=== PATIENT | female | born 1945 | race Caucasian/White ===

== ENCOUNTER 2024-03-23 20:03 | Emergency (ER) | payer MEDICARE ==
[2024-03-23] MEDS ORDERED: Sodium Chloride 0.9% 10 ML Syringe FLUSH PRN (20:12)
[2024-03-23] MEDS: Nitroglycerin 0.4 MG Tab.SL SL ONE (20:15)
[2024-03-23] MEDS: Aspirin 81 MG Tab.Chew ONE (20:16)
[2024-03-23] MEDS: Ticagrelor 90 MG Tab PO ONE (20:18)
[2024-03-23 20:20] LABS: BASOPHILS PERCENT AUTO 0.1 % (0.2-1.2); EOSINOPHILS PERCENT AUTO 0.1 % (0.0-4.0); HEMATOCRIT 41.8 % (33.0-47.0); HEMOGLOBIN 14.1 g/dL (12.0-16.0); IMMATURE GRAN ABSOLUTE AUTO 0.02 x10^3/uL (0.00-0.07); LYMPHOCYTES ABSOLUTE AUTO 1.1 x10^3/uL (1.0-4.8); LYMPHOCYTES PERCENT AUTO 7.6 % (25.0-50.0); MEAN CORPUSCULAR HEMOGLOBIN 28.5 pg (26.0-32.0); MEAN CORPUSCULAR HGB CONC 33.7 g/dL (32.0-36.0); MEAN CORPUSCULAR VOLUME 84.4 fL (78.0-93.0); MONOCYTES ABSOLUTE AUTO 0.4 x10^3/uL (0.0-0.8); MONOCYTES PERCENT AUTO 2.5 % (2.0-11.0); NEUTROPHILS ABSOLUTE AUTO 13.2 x10^3/uL (1.8-7.7); NEUTROPHILS PERCENT AUTO 89.6 % (50.0-80.0); PLATELET COUNT,PLT 244 x10^3/uL (130-400); RED BLOOD CELL COUNT 4.95 x10^6/uL (4.00-5.50); WHITE BLOOD CELL COUNT,WBC 14.7 x10^3/uL (4.0-10.0)
[2024-03-23] MEDS: Heparin Sodium 5,000 Units/ML Vial IVPUSH ONE (20:22)
[2024-03-23] MEDS: Heparin Sodium/0.45% NaCl 25,000 UNITS/500 ML BAG IV SCH (20:23)
[2024-03-23] MEDS: Nitroglycerin/D5W 25 MG/250 ML BOTTLE IV SCH (20:23)
[2024-03-23] MEDS: Ondansetron 4 MG/2 ML SDV ONE (20:30)
[2024-03-23] MEDS: fentaNYL 50 MCG/ML SDV ONE (20:30)
[2024-03-23] MEDS: Metoprolol Tartrate 25 MG Tab ONE (20:30)
[2024-03-23] MEDS: Atropine 0.1 MG/ML 10 ML Syringe ONE (20:34)
[2024-03-23] MEDS: EPINEPHrine 1:10,000 1 MG/10 ML Syringe ONE (20:35)
[2024-03-23 20:38] LABS: PROTHROMBIN TIME 9.9 SEC (8.9-11.5); PTT,PARTIAL THROMBOPLSTIN TIME 24.1 SEC (21.9-33.8)
[2024-03-23] MEDS ORDERED: Lactated Ringers 1,000 ML IV ONE (20:38)
[2024-03-23] MEDS ORDERED: EPINEPHrine 1:10,000 1 MG/10 ML Syringe ONE ×6 (20:39)
[2024-03-23] MEDS ORDERED: Nitroglycerin 0.4 MG Tab.SL ONE (20:39)
[2024-03-23 20:43] LABS: A/G RATIO 0.82; ALANINE AMINOTRANSFERASE,ALT 24 U/L (14-59); ALBUMIN 3.7 g/dL (3.4-5.0); ALKALINE PHOSPHATASE 110 U/L (46-116); ANION GAP 16.8 mmol/L (5-15); ASPARTATE AMNIOTRANSFERASE,AST 89 U/L (15-37); BILIRUBIN TOTAL 0.2 mg/dL (0.2-1.0); BLOOD UREA NITROGEN,BUN 18 mg/dL (7-18); CALCIUM 9.4 mg/dL (8.5-10.1); CARBON DIOXIDE,CO2 23 mmol/L (21-32); CHLORIDE,CL 102 mmol/L (98-107); ESTIMATED GFR 58 mL/min (>=60); GLUCOSE RANDOM 187 mg/dL (70-99); MAGNESIUM 1.7 mg/dL (1.8-2.4); POTASSIUM,K 3.8 mmol/L (3.5-5.1); PROTEIN TOTAL,TP 8.2 g/dL (6.4-8.2); SODIUM,NA 138 mmol/L (136-145)
[2024-03-23 20:45] LABS: C-REACTIVE PROTEIN < 0.50 mg/dL (<=0.50)
== END 2024-03-23 22:50 | disposition expired ==
LOC: VM.ED 20:03
DX: I46.9 Cardiac arrest, cause unspecified (principal); I21.3 ST elevation (STEMI) myocardial infarction of unspecified site
CPT/HCPCS: 31500; 80053; 83735; 84484; 85025; 85610; 85730; 86140; 92950; 93005; 96374; 96375; 99291; A9270; J0171; J1644; J2305; J2405; J3010; J7120; 36415; J0461